=== PATIENT | male | born 1960 | race Caucasian/White ===

== ENCOUNTER → 2018-03-05 08:55 | Outpatient (CLI) | payer OTHER, BC, SELFPAY ==
[2018-03-05 10:28] LABS: Alanine Aminotransferase 34 U/L (12-78); Albumin Level 3.9 gm/dL (3.4-5.0); Albumin/Globulin Ratio 1.1 (1.1-1.8); Alkaline Phosphatase 79 U/L (46-116); Anion Gap 14.9 mEq/L (5-15); Aspartate Amino Transferase 46 U/L (15-37); Bilirubin,Total 0.4 mg/dL (0.2-1.0); Blood Urea Nitrogen 23 mg/dL (7-18); Calcium 9.5 mg/dL (8.5-10.1); Carbon Dioxide 27 mmol/L (21.0-32.0); Chloride 103 mmol/L (98-107); Cholesterol 120 mg/dL (140-200); Creatinine,Serum 1.09 mg/dL (0.70-1.30); Estimated Glomerular Filt Rate 70 ml/min (>60); GFR (African American) 84 ML/MIN (>60); Globulin 3.5 gm/dl (1.3-3.2); Glucose 103 mg/dL (74-106); HDL Cholesterol 61 mg/dL (27-67); LDL Cholesterol 49 mg/dL (0-130); Potassium 3.9 mmoL/L (3.5-5.1); Prostate Specific Ag Screen 1.4 ng/mL (0.0-4.0); Sodium 141 mmol/L (136-145); Total Protein,Serum 7.4 gm/dL (6.4-8.2); Triglycerides 50 mg/dL (30-200); VLDL Cholesterol 10 mg/dL (0-40)
== END ==
PROVIDERS: Visit Provider Family Medicine
DX: I10 Essential (primary) hypertension (principal); E78.5 Hyperlipidemia, unspecified
CPT/HCPCS: 36415; 80053; 80061; G0103

== ENCOUNTER → 2018-07-13 14:28 | Outpatient (CLI) | payer OTHER, BC, SELFPAY | PROVIDERS: Family Provider Family Medicine; Visit Provider Family Medicine | DX: M54.5 Low back pain (principal) ==

== ENCOUNTER → 2018-07-23 15:51 | Outpatient (CLI) | payer OTHER, BC, SELFPAY ==
--- NOTE | 2018-07-23 15:53 | MR_ITS ---
MR thoracic spine wo con HISTORY: ITS.REASON: ACUTE MIDLINE THORACIC BACK PAIN ORDERING PHYSICIAN: Isaac Hercules MD PATIENT AGE: 57 years Comparison: None TECHNIQUE: Standard multiplanar multiecho sequences are performed without contrast. 3-D MIP and myelographic images are also rendered and reviewed FINDINGS: There is normal alignment. There is mild multilevel degenerative disc disease with decrease in the disc space and disc desiccation from T4 to T12. There is some minimal endplate irregularity at T7-T12 with slight decrease in the vertebral body height at T6-T9 suggesting Scheuermann's disease. T5-T6: Minimal right paracentral disc protrusion without impingement. T6-T7: Small left paracentral disc protrusion abutting the anterior aspect of the cord. T7-T8: Small central disc extrusion/herniation which abuts the anterior aspect of the cord centrally and slightly towards the right. There is some mild compression upon the anterior right aspect of the cord with mild flattening of the cord at this region. There is minimal inferior extrusion of the disc. No fracture or dislocation evident. No bony destructive process or bone marrow edema. IMPRESSION: 1. Small central disc extrusion/herniation at T7-T8 very slightly eccentric towards the right causing mild flattening upon the anterior right aspect of the cord with minimal inferior extrusion of the disc. 2. Multilevel thoracic spondylosis with degenerative disc disease and possible Scheuermann's disease. 3. Minimal right paracentral disc protrusion at T5-6 and small left paracentral disc protrusion at T6-T7 IMPRESSION:
== END ==
PROVIDERS: Family Provider Family Medicine; PCP Family Medicine; Visit Provider Family Medicine
DX: M54.6 Pain in thoracic spine (principal)
CPT/HCPCS: 72146

== ENCOUNTER → 2019-07-26 11:12 | Outpatient (POV) | payer OTHER, BC, SELFPAY | PROVIDERS: Visit Provider Dermatology | DX: Z00.00 Encounter for general adult medical examination without abnormal findings (principal) ==

== ENCOUNTER → 2020-04-03 15:58 | Outpatient (POV) | payer OTHER, BC, SELFPAY | PROVIDERS: PCP Physician Assistant; Visit Provider Physician Assistant | DX: Z00.00 Encounter for general adult medical examination without abnormal findings (principal) ==

== ENCOUNTER → 2020-06-21 08:16 | Outpatient (CLI) | payer BC, SELFPAY ==
--- NOTE | 2020-06-21 08:20 | CT_ITS ---
PROCEDURE: CT LUNG SCREENING CLINICAL INDICATION: H/O NICOTINE DEPENDENCE Current smoker 94 pack year smoking history Emphysema No prior COMPARISON: No exams were available for comparison TECHNIQUE: The exam was performed on a GE Light Speed [address] scanner using 2.90 mGy CTDI. A low dose helical CT CHEST was performed on a multi-detector scanner. All CT scans at the facility use one or more dose reduction, viz: automated exposure control, ma/kV adjustment per patient size (including targeted exams where dose is matched to indication, i.e. head), or iterative reconstruction technique. The LDCT was performed in a facility that meets the criteria for the screening program. Data regarding this exam was submitted to ACR which is an approved registry. The order for this exam indicates that it came as a result of a lung cancer screening counseling shard decision-making visit that included all the elements required of such a visit including smoking cessation. The radiologist interpreting this exam meets the [facility] criteria for the LDCT lung cancer screening program. The exam is reported using the Lung-RADS classification scale and reported to the ACR registry. NOTE: This study was performed for the specific purposes of lung cancer screening and is not an alternative to diagnostic chest CT. RADIATION DOSE: CTDI vol(CT dose Index-volume) = 2.90mG DLP (Dose Length Product) = 117.50 mGcm FINDINGS: Paraseptal emphysema. COPD. 3 mm noncalcified nodule right major fissure image 49. Subpleural opacity in the right. 2 mm not nodule image 44 left upper lobe. 2 mm noncalcified nodule at the left upper lobe image 36 OTHER FINDINGS: No other pertinent findings evident. IMPRESSION: Lung-RADS Category 2 Benign Appearance or Behavior Follow-up: 12 month LDCT Dictated by: Kirill Jane MD 07/01/2020 09:28 Kirill Jane MD in [place] 07/01/2020 09:28
== END ==
PROVIDERS: PCP Family Medicine; Visit Provider Family Medicine
DX: Z87.891 Personal history of nicotine dependence (principal)

== ENCOUNTER → 2020-08-24 15:34 | Outpatient (CLI) | payer BC, SELFPAY ==
--- NOTE | 2020-08-24 | XR_ITS ---
PROCEDURE: XR SHOULDER RT MIN 2V CLINICAL INDICATION: Injury with pain COMPARISON: CR XR CLAVICLE RT from 08/24/2020 FINDINGS: There is a nondisplaced oblique fracture involving the distal clavicle. The fracture line is 2.7 cm medial to the AC joint. The AC joint shows hypertrophic changes but no displacement or dislocation. Osteoarthritic changes are also present at the glenohumeral joint. There is generalized vascular calcification. IMPRESSION: Nondisplaced oblique distal clavicular fracture with osteoarthritis Dictated by: Kirill Jane MD 08/24/2020 16:02 Kirill Jane MD in [place] 08/24/2020 16:02
== END ==
PROVIDERS: PCP Family Medicine; Visit Provider Family Medicine
DX: S49.91XA Unspecified injury of right shoulder and upper arm, initial encounter (principal)
CPT/HCPCS: 73000; 73030

== ENCOUNTER → 2020-09-07 10:09 | Outpatient (CLI) | payer BC, SELFPAY ==
--- NOTE | 2020-09-07 10:13 | XR_ITS ---
PROCEDURE: XR CLAVICLE RT CLINICAL INDICATION: RT CLAVICLE FX Follow-up fracture COMPARISON: CR XR CLAVICLE RT from 08/24/2020 FINDINGS: There is a healing right distal clavicular fracture oblique in nature. The fracture is nondisplaced. Osteoarthritic changes are present at the acromioclavicular joint and glenohumeral joint Generalized vascular calcifications are present. Other findings:None. IMPRESSION: Healing distal clavicular fracture with osteoarthritis Dictated by: Kirill Jane MD 09/07/2020 10:56 Kirill Jane MD in [place] 09/07/2020 10:56
== END ==
PROVIDERS: PCP Family Medicine; Visit Provider Family Medicine
DX: S42.034A Nondisplaced fracture of lateral end of right clavicle, initial encounter for closed fracture (principal)
CPT/HCPCS: 73000

== ENCOUNTER → 2020-09-25 14:59 | Outpatient (POV) | payer BC, SELFPAY | PROVIDERS: Visit Provider Dermatology | DX: Z00.00 Encounter for general adult medical examination without abnormal findings (principal) ==

== ENCOUNTER → 2022-07-09 13:11 | Outpatient (CLI) | payer BC, SELFPAY ==
--- NOTE | 2022-07-09 13:14 | CT_ITS ---
FINAL REPORT TECHNIQUE: Axial images were obtained from the lung apex to the mid abdomen by computed tomography. This study was performed with techniques to keep radiation doses as low as reasonably achievable (ALARA). Individualized dose reduction techniques using automated exposure control or adjustment of mA and/or kV according to the patient's size were employed. CLINICAL HISTORY: H/O NICOTINE DEPENDENCE, LOW DOSE LUNG SCREENING COMPARISON: 06/21/2020 FINDINGS: CHEST CT LOW DOSE CTDI vol (mGy): 2.90 DLP (mGy-cm): 115.94 There is no axillary adenopathy. There is no hilar or mediastinal adenopathy. The heart is normal in size. There is no pericardial or pleural effusion. There is a densely calcified granuloma in the inferior right upper lobe. There is localized soft tissue density in the medial right middle lobe measuring 1.5 x 0.8 cm. Finding is well seen on image 71 of series 3. There is linear scarring in the right lower lobe posteriorly. There is also mild airspace opacity in the right lower lobe, favor inflammatory. The gallbladder is mildly distended. IMPRESSION: New density in the medial right middle lobe which is indeterminate, favor postinflammatory. Right lower lobe airspace opacity. Lung RADS category 4BS. Recommend 1 month follow-up low-dose chest CT. Reviewed, Interpreted and Dictated by Leonard Palmer MD Transcribed by Katelyn Che Authenticated and [facility]
== END ==
PROVIDERS: PCP Family Medicine; Visit Provider Family Medicine
DX: Z87.891 Personal history of nicotine dependence (principal); Z12.2 Encounter for screening for malignant neoplasm of respiratory organs
CPT/HCPCS: 71271

== ENCOUNTER → 2022-08-08 12:52 | Outpatient (CLI) | payer BC, SELFPAY ==
--- NOTE | 2022-08-08 12:55 | CT_ITS ---
FINAL REPORT TECHNIQUE: Axial imaging of the chest was obtained without contrast. Reformatted images were also obtained and reviewed.This study was performed with techniques to keep radiation doses as low as reasonably achievable, (ALARA). Individualized dose reduction technique using automated exposure control or adjustment of mA and/or kV according to the patient's size were employed. CLINICAL HISTORY: ABNORMAL ABDOMINAL CT SCAN COMPARISON: 07/09/2022 FINDINGS: There are severe coronary artery calcifications. There is no axillary adenopathy. There is no hilar or mediastinal mass or adenopathy. Heart size is normal. There is no pericardial or pleural effusion. Limited images of the upper abdomen are unremarkable. There is mild emphysema and mild pulmonary scarring. There has been interval improvement in medial right middle lobe opacity. Slight worsening linear opacities are seen at the right lung base consistent with worsening atelectasis or scarring. There is no new mass or nodule. IMPRESSION: Severe coronary artery calcifications. Improved medial right middle lobe opacity. Slight worsening of linear opacities at the right lung base consistent with worsening atelectasis or scarring. Reviewed, Interpreted and Dictated by Sean Ruby III, MD Transcribed by Susi Dickens Authenticated and [facility]
== END ==
PROVIDERS: PCP Family Medicine; Visit Provider Family Medicine
DX: R93.5 Abnormal findings on diagnostic imaging of other abdominal regions, including retroperitoneum (principal)
CPT/HCPCS: 71250

== ENCOUNTER → 2023-01-06 09:38 | Outpatient (CLI) | payer BC, SELFPAY ==
[2023-01-06 10:09] LABS: Blood Urea Nitrogen 21 mg/dl (9-20); Estimated Glomerular Filt Rate 98 ml/min (>60); GFR (African American) 119 ML/MIN (>60)
== END ==
PROVIDERS: PCP Family Medicine; Visit Provider Family Medicine
DX: Z01.812 Encounter for preprocedural laboratory examination (principal)
CPT/HCPCS: 36415; 82565; 84520

== ENCOUNTER → 2023-01-07 10:33 | Outpatient (CLI) | payer BC, SELFPAY | PROVIDERS: PCP Family Medicine; Visit Provider Family Medicine | DX: M54.2 Cervicalgia (principal); G95.9 Disease of spinal cord, unspecified ==

== ENCOUNTER 2023-11-20 10:51 | Outpatient (CLI) | payer BC, SELFPAY ==
--- NOTE | 2023-11-20 10:56 | CT_ITS ---
FINAL REPORT TECHNIQUE: Axial images were obtained from the lung apex to the mid abdomen by computed tomography. This study was performed with techniques to keep radiation doses as low as reasonably achievable (ALARA). Individualized dose reduction techniques using automated exposure control or adjustment of mA and/or kV according to the patient's size were employed. CLINICAL HISTORY: H/O TOBACCO USE CURRENT SMOKER 1.5PPD X 40 YRS COMPARISON: 07/09/2022 FINDINGS: CHEST CT LOW DOSE CTDI vol (mGy): 2.90 DLP (mGy-cm): 112.55 There is no axillary adenopathy. There is no hilar or mediastinal adenopathy. The heart is normal in size. There is no pericardial or pleural effusion. There is patchy airspace disease within the right middle lobe and right lower lobe, new since prior suspicious for recurrent pneumonia. Aspiration may be considered as a potential cause. Areas of pneumonia seen on prior exam have largely resolved. Linear densities in the right lung base have resolved. The left lung is clear. Limited images of the upper abdomen reveal fatty infiltration of the liver. IMPRESSION: Patchy airspace disease right lung base suspicious for pneumonia, possibly related to aspiration. No evidence of neoplasm. Lung RADS category 2S. Recommend 12 month follow-up low-dose chest CT. Clinical management of pneumonia, short-term chest CT may be considered at the discretion of the treating physician. Reviewed, Interpreted and Dictated by Mar Alarcon MD Transcribed by Katelyn Che Authenticated and [facility]
== END 2023-11-20 23:59 ==
LOC: RAD 10:51
PROVIDERS: PCP Family Medicine; Visit Provider Family Medicine
DX: Z12.2 Encounter for screening for malignant neoplasm of respiratory organs (principal); F17.200 Nicotine dependence, unspecified, uncomplicated
CPT/HCPCS: 71271

== ENCOUNTER 2024-01-12 16:02 | Outpatient (CLI) | payer BC, SELFPAY | END 2024-01-12 23:59 | LOC: RAD 16:02 | PROVIDERS: PCP Family Medicine; Visit Provider Family Medicine | DX: M47.12 Other spondylosis with myelopathy, cervical region (principal) ==

== ENCOUNTER 2025-05-16 14:59 | Outpatient (CLI) | payer BC, MEDICARE, SELFPAY ==
--- OUTSIDE RECORDS SUMMARY | 2025-04-06 06:45 | XMS_ITS ---
Author Organization [facility] Address [address] [facility] [address] [place] [id number] Care Team Providers Care Predictive Maintenance Specialist Name Role Phone Sukhi Hercules Primary Care Provider Allergies No Known Allergies REASON FOR VISIT 3 month ckup, Needs colon cancer screening, low dose chest CT, Tdap, & shingles vaccine Encounters Encounter Location Date Provider Diagnosis [facility] [address] [facility] [address] [place] [id number] 04/06/2025 Sukhi Hercules Plan Of Treatment Next Appt Details Provider Name:Sukhi Ward, 08/08/2025 09:15:00 AM, [address] [facility], [address], [place], [id number], Progress Notes * RAMONA TABORDOB: 0 (64 yo M)Acc No.[id number]:04/06/2025 Progress Notes Patient: RAMONA ROONEY Provider: Sukhi Hercules M.D. :1960 A ge:64 Y S ex:Male Date:04/06/2025 Address:[id number] Subjective: * Chief Complaints: * 1 . 3 month ckup. 2. Needs colon cancer screening, low dose chest CT, Tdap, & shingles vaccine. * HPI: H PI: 64 year old male presents with c/o Patient is here today for?Pt is here today for a 3 month check up. Pt sts he is doing well and has no concerns at this time. * ROS: D ERMATOLOGY: no R mary carmen. n o H hilario. G ASTROENTEROLOGY: no N ausea. n o V omiting. n o D iarrhea.? U ROLOGY: no D ifficulty urinating. n o B lood in urine. * Medical History: A nxiety, Hypertension, HLP, Chronic back pain - failed back syndrome, COPD, Tobacco addiction, Hx of ETOH abuse , PUD by EGD - 11/2023. * Surgical History: L umbar discectomy/ Dr. Oshea , Posterior interbody fusion L4-5, L5-S1/ Dr. 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 * Hospitalization/Major Diagno stic Procedure: s ee above , [facility]-alcohol withdrawal 11/07 to 11/11/18. * Family History: F ather: alive, CAD- s/p CABG. M other: alive. C hildren: cerebral palsy. 1 brother(s) , 2 sister(s) - healthy. 1 son(s) , 1 daughter(s) . . * Social History: C URRENT TOBACCO USE S moking Status: Patient does smoke, packs per day: 2, number of cigarettes per day: 30, Since age of: 12, Smoking preference: cigarettes. C affeine: yes, frequency: 4 cups of coffee a day. Marital Status: . Occupation: quality assurance consultant. Past smoking status: yes, PPD:1 , years: since age of 15 yrs. ,determination:. Alcohol: No, Type: , Frequency: ,Years: , Determination: Quit whiskey 05/2013. * Allergies: N .K.D.A. Objective: * Vitals: Assessment: Plan: * Treatment: * Images: Billing Information: * Visit Code: * Procedure Codes: * Electronic signature of Sukhi Hercules MD on 05/16/2025 at 03:02 PM EDT Sign off status: Pending * Provider: Sukhi Hercules M.D. Date: 0 04/06/2025 Generated for Tatiana mccrary/More/Ketan on: 0 05/16/2025 03:02 PM EDT History and Physical Notes * HPI (History of Present Illness) Category Sub-Category Detail Notes Category Not es HPI Patient is here today for Pt is here today for a 3 month check up. Pt sts he is doing well and has no concerns at this time
--- OUTSIDE RECORDS SUMMARY | 2025-04-25 05:45 | XMS_ITS ---
Author Organization [facility] Address [address] [facility] [address] [facility] [address] [place] [id number] Care Team Providers Care Film Painter Name Role Phone Sukhi Hercules Primary Care Provider Allergies No Known Allergies REASON FOR VISIT check up, Needs labs, low dose chest CT, colon cancer screening, Tdap, & shingles vaccine Encounters Encounter Location Date Provider Diagnosis [facility] [address] [facility] [address] [place] [id number] 04/25/2025 Sukhi Hercules Plan Of Treatment Next Appt Details Provider Name:Sukhi Ward, 08/08/2025 09:15:00 AM, [address] [facility], [address], [place], [id number], Progress Notes * RAMONA TABORDOB: 0 (64 yo M)Acc No.[id number]:04/25/2025 Progress Notes Patient: RAMONA ROONEY Provider: Sukhi Hercules M.D. :1960 A ge:64 Y S ex:Male Date:04/25/2025 Address:[id number] Subjective: * Chief Complaints: * 1 . Check up. 2. Needs labs, low dose chest CT, colon cancer screening, Tdap, & shingles vaccine. * HPI: H PI: 64 year old male presents with c/o Patient is here today for?Pt is here today for a check up. Pt sts he is fasting, and has no complaints at this itme. 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 * Hospitalization/Major Diagno stic Procedure: s ee above , [facility]-alcohol withdrawal 11/07 to 11/11/18. * Family [...] a day. Marital Status: . Occupation: quality process auditor. Past smoking status: yes, PPD:1 , years: [...] * Provider: Sukhi Hercules M.D. Date: 0 04/25/2025 Generated for Tatiana mccrary/More/Ketan on: 05/16/2025 03:02 PM EDT History and Physical Notes * HPI (History of Present Illness) Category Sub-Category Detail Notes Category Not es HPI Patient is here today for Pt is here today for a check up. Pt sts he is fasting, and has no complaints at this itme
--- OUTSIDE RECORDS SUMMARY | 2025-05-04 06:00 | XMS_ITS ---
Author Organization [facility] Address [address] [facility] [address] [place] [phone] Care Team Providers Care Parliamentary Counsel Name Role Phone Sukhi Hercules Primary Care Provider [phone] Allergies No Known Allergies REASON FOR VISIT check up, Needs low dose chest CT, colon cancer screening, Tdap, & shingles vaccine Medications Medication SIG (Take, Route, Frequency, Duration) Notes Start Date End Date Status Ferrous Sulfate 325 (65 Fe) MG 1 tablet Orally once daily; Duration: 30 day(s) 12/21/2023 Active Tab-A-Aziza - TAKE ONE TABLET BY M OUTH EVERY DAY; Duration: 90 Active Potassium Chloride ER 10 MEQ 1 capsule with food Orally once daily; Duration: 30 day(s) 12/25/2024 Active Anoro Ellipta 62.5-25 MCG/ACT 1 puff Inhalation Once a day; Duration: 30 days Active Losartan Potassium 50 mg TAKE ONE TABLET BY MOUTH EVERY DAY; Duration: 90 Active Pantoprazole Sodium 40 MG 1 tablet Orall y Once a day Active Losartan Potassium 50 MG 1 tab(s) orally once a day Active Rosuvastatin Calcium 10 mg TAKE ONE TABL ET BY MOUTH EVERY DAY AT BEDTIME Active amLODIPine Besylate 5 mg TAKE ONE TABLET BY MOUTH EVERY DAY Active Aspirin 81 81MG DIRECTED QD Active Vitamin D3 50 MCG (2000 UT) 2 tab(s) ora lly once a day Active MS Contin 30 MG 2 tab(s) qam, 1 tab( s) qpm orally as directed Active Albuterol Sulfate HFA 108 (90 Base) MCG/ACT 2 puffs Inhalation four times a day as needed Active Anoro Ellipta 62.5-25 MCG/ACT 1 puff(s) inhaled once a day Active PARoxetine HCl 40 mg TAKE ONE TABLET BY MOUTH EVERY DAY Active Thiamine HCl 100 MG 1 tablet Orally Once a day Active Folic Acid 1 MG 1 tab(s) orally once a day Active HYDROcodone-Acetaminophen 5-325 MG 1 tab(s) orally 3 times a day Active Problems Problem Type SNOMED Code ICD Code Onset Dates Problem Status W/U Status Risk Notes Problem 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 Vital Signs Weight 177.8 lbs 05/04/2025 Blood pressure systolic 130 mm Hg 05/04/20 25 Blood pressure diastolic 86 mm Hg 025 Heart Rate 124 /min 05/04/2025 Height 71 in 05/04/2025 BMI 24.8 kg/m2 05/04/2025 Encounters Encounter Location Date Provider Diagnosis [facility] [address] [phone] 05/04/2025 Sukhi Hercules Chronic pain syndrom e G89.4 ; Failed back syndrome M96.1 ; HTN (hypertension) I10 ; COPD (chronic obstructive pulmonary disease) J44.9 ; Dyslipidemia E78.5 ; Anemia associated with acute blood loss D62 ; Depressive disorder F32.9 ; Tobacco dependence F17.200 ; Cervical myelopathy G95.9 ; ETOH abuse F10.10 ; BMI 24.0-24.9, adult Z68.24 ; Alcoholic polyneuropathy G62.1 ; Seasonal allergic rhinitis, unspecified allergic rhinitis trigger J30.2 ; Bilateral leg weakness M62.81 and Screening for prostate cancer Z12.5 Assessments Encounter Date Diagnosis (ICD Code) Assessment Notes Treatment Notes Treatment Clinical Notes Section Notes 05/04/2025 Chronic pain syndrome (ICD-10 - G89.4) 05/04/2025 Failed back syndrome (ICD-10 - M96.1) 05/04/2025 HTN (hypertension) (ICD-10 - I10) 05/04/2025 COPD (chronic obstructive pulmonary disease) (ICD-10 - J44.9) 05/04/2025 Dyslipidemia (ICD-10 - E78.5) 05/04/2025 Anemia associated with acute blood loss (ICD-10 - D62) 05/04/2025 Depressive disorder (ICD-10 - F32.9) 05/04/2025 Tobacco dependence (ICD-10 - F17.200) 05/04/2025 Cervical myelopathy (ICD-10 - G95.9) S/p recent cervical laminectomy 05/04/2025 ETOH abuse (ICD-10 - F10.10) 05/04/2025 BMI 24.0-24.9, adult (ICD-10 - Z68.24) 05/04/2025 Alcoholic polyneuropathy (ICD-10 - G62.1) 05/04/2025 Seasonal allergic rhinitis, unspecified allergic rhinitis trigger (ICD-10 - J30.2) 05/04/2025 Bilateral leg weakness (ICD-10 - M62.81) Symptoms are likely multifactorial. He is very sedentary and becomes dyspneic with slightest exertion. He is tachycardic today after simply walking in from the parking lot which point to deconditioning is a contributing factor to his leg weakness. There is also likely a neurologic component related to alcoholic neuropathy as well as his history of failed back syndrome and cervical myelopathy. He is instructed on leg strengthening exercises with leg raises, leg extensions, and squats. He is also advised to begin a slow walking program. May need to consider neurologic evaluation by way of EMG testing. 05/04/2025 Screening for prostate cancer (ICD-10 - Z12.5) Plan Of Treatment Medication Medication Name Sig Start Date Stop Date Notes Losartan Potassium 50 MG 1 tab(s) orally once a day Rosuvastatin Calcium 10 mg TAKE ONE TABL ET BY MOUTH EVERY DAY AT BEDTIME amLODIPine Besylate 5 mg TAKE ONE TABLET BY MOUTH EVERY DAY Vitamin D3 50 MCG (2000 UT) 2 tab(s) orally once a day MS Contin 30 MG 2 tab(s) qam, 1 tab( s) qpm orally as directed Albuterol Sulfate HFA 108 (9 0 Base) MCG/ACT 2 puffs Inhalation four times a day as needed Anoro Ellipta 62.5-25 MCG/ACT 1 puff(s) inhaled once a day PARoxetine HCl 40 mg TAKE ONE TABLET BY MOUTH EVERY DAY Thiamine HCl 100 MG 1 tablet Orally Once a day Folic Acid 1 MG 1 tab(s) orally once a day HYDROcodone-Acetaminophen 5-325 MG 1 tab(s) orally 3 times a day Treatment Notes Assessment Notes Bilateral leg weakness Symptoms are likely multifactorial. He is very sedentary and becomes dyspneic with slightest exertion. He is tachycardic today after simply walking in from the parking lot which point to deconditioning is a contributing factor to his leg weakness. There is also likely a neurologic component related to alcoholic neuropathy as well as his history of failed back syndrome and cervical myelopathy. He is instructed on leg strengthening exercises with leg raises, leg extensions, and squats. He is also advised to begin a slow walking program. May need to consider neurologic evaluation by way of EMG testing. Next Appt Details Follow Up: 3 Months, Reason: Provider Name:Sukhi Ward, 08/08/2025 09:15:00 AM, [address] [facility] [address], [place], [place], [phone], Progress Notes * RAMONA TABORDOB: 0 (64 yo M)Acc No.[id number]:05/04/2025 Progress Notes Patient: RAMONA ROONEY Provider: Sukhi Hercules M.D. :1960 A ge:64 Y S ex:Male Date:05/04/2025 Address:[address] [place] [address] [id number] Subjective: * Chief Complaints: * 1 . Check up. 2. Needs low dose chest CT, colon cancer screening, Tdap, & shingles vaccine. * HPI: H PI: 64 year old male presents with c/o Patient is here today for?Pt is here today for a check up. Pt sts he is doing well and has no concerns at this time . ? N eurology: His chief complaint today is leg weakness. He has actually had a couple falls recently. He denies leg numbness. He admits to being very sedentary at home and understands that exercise would likely help. It is significant that he has a history of cervical myelopathy and failed back syndrome as well as continued alcohol abuse. 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 * Hospitalization/Major Diagno stic Procedure: s ee above , [facility]-alcohol withdrawal 11/07 to 11/11/18. * Family [...] day. Marital Status: . Occupation: quality assurance assistant. Past smoking status: yes, PPD:1 , years: since age of 15 yrs. ,determination:. Alcohol: No, Type: , Frequency: ,Years: , Determination: Quit whiskey 05/2013. * Medications: T aking Albuterol Sulfate HFA 108 (90 Base) MCG/ACT Aerosol Solution 2 puffs Inhalation four times a day as needed , Taking PARoxetine HCl 40 mg Tablet TAKE ONE TABLET BY MOUTH EVERY DAY , Taking amLODIPine Besylate 5 mg Tablet TAKE ONE TABLET BY MOUTH EVERY DAY , Taking Rosuvastatin Calcium 10 mg Tablet TAKE ONE TABLET BY MOUTH EVERY DAY AT BEDTIME , Taking Aspirin 81 81MG DIRECTED QD , Taking Vitamin D3 50 MCG (2000 UT) Tablet 2 tab(s) orally once a day , Taking Pantoprazole Sodium 40 MG Tablet Delayed Release 1 tablet Orally Once a day , Taking Ferrous Sulfate 325 (65 Fe) MG Tablet 1 tablet Orally once daily , Taking Thiamine HCl 100 MG Tablet 1 tablet Orally Once a day , Taking Folic Acid 1 MG Tablet 1 tab(s) orally once a day , Taking Tab-A-Aziza - Tablet TAKE ONE TABLET BY MOUTH EVERY DAY , Taking Potassium Chloride ER 10 MEQ Capsule Extended Release 1 capsule with food Orally once daily , Taking Anoro Ellipta 62.5-25 MCG/ACT Aerosol Powder Breath Activated 1 puff Inhalation Once a day , Taking Losartan Potassium 50 mg Tablet TAKE ONE TABLET BY MOUTH EVERY DAY , Taking HYDROcodone-Acetaminophen 5-325 MG Tablet 1 tab(s) orally 3 times a day , Taking MS Contin 30 MG Tablet Extended Release 2 tab(s) qam, 1 tab(s) qpm orally as directed , Medication List reviewed and reconciled with the patient * Allergies: N .K.D.A. Objective: * Vitals: W t: 177.8, Temp: 97.9, BP: 130/86, HR: 124, O2 Sat: 94% on RA, Nurse: cash, Ht: 71, BMI:24.8. * Examination: G eneral Examination: General Appearance: N AD. H eart: T achycardic but regular. L ungs: B reath sounds are generally diminished. No rales or wheezes. E xtremities: n o leg edema. Strength in the lower extremities is 4+/5. His gait is somewhat ataxic.. Assessment: * Assessment: 1. C hronic pain syndrome - G89.4 (Primary) 2 . F tawanna back syndrome - M96.1 3 . H TN (hypertension) - I10 4 . C OPD (chronic obstructive pulmonary disease) - J44.9 5 . D yslipidemia - E78.5 6 . Anemia associated with acute blood loss - D62 7 . D epressive disorder - F32.9? 8. T obacco dependence - F17.200 9 . C ervical myelopathy - G95.9 N otes :S/p recent cervical laminectomy 1 0. E BECCA abuse - F10.10 1 1. B WI 24.0-24.9, adult - Z68.24 1 2. A lcoholic polyneuropathy - G62.1 1 3. S easonal allergic rhinitis, unspecified allergic rhinitis trigger - J30.2 1 4. B ilateral leg weakness - M62.81 1 5. S creening for prostate cancer - Z12.5 ? Plan: * Treatment: 2. F tawanna back syndrome Continue MS Contin Tablet Extended Release, 30 MG, 2 tab(s) qam, 1 tab(s) qpm, orally, as directed, 90, Refills 0. 3. H TN (hypertension) Continue amLODIPine Besylate Tablet, 5 mg, TAKE ONE TABLET BY MOUTH EVERY DAY; C ontinue Losartan Potassium Tablet, 50 MG, 1 tab(s), orally, once a day. 4. C OPD (chronic obstructive pulmonary disease) Continue Albuterol Sulfate HFA Aerosol Solution, 108 (90 Base) MCG/ACT, 2 puffs, Inhalation, four times a day as needed; C ontinue Anoro Ellipta Aerosol Powder Breath Activated, 62.5-25 MCG/ACT, 1 puff(s), inhaled, once a day. 5. D yslipidemia Continue Rosuvastatin Calcium Tablet, 10 mg, TAKE ONE TABLET BY MOUTH EVERY DAY AT BEDTIME. ? 6. D epressive disorder Continue PARoxetine HCl Tablet, 40 mg, TAKE ONE TABLET BY MOUTH EVERY DAY. 7. A lcoholic polyneuropathy Continue Thiamine HCl Tablet, 100 MG, 1 tablet, Orally, Once a day; C ontinue Folic Acid Tablet, 1 MG, 1 tab(s), orally, once a day; C ontinue Vitamin D3 Tablet, 50 MCG (2000 UT), 2 tab(s), orally, once a day. 8. B ilateral leg weakness Notes: Symptoms are likely multifactorial. He is very sedentary and becomes dyspneic with slightest exertion. He is tachycardic today after simply walking in from the parking lot which point to deconditioning is a contributing factor to his leg weakness. There is also likely a neurologic component related to alcoholic neuropathy as well as his history of failed back syndrome and cervical myelopathy. He is instructed on leg strengthening exercises with leg raises, leg extensions, and squats. He is also advised to begin a slow walking program. May need to consider neurologic evaluation by way of EMG testing. * Procedure Codes: G 8420 BMI<30 AND >=22 CALC & DOCU, G8950 PREHTN/HTN BP DOC INDCD F/U DOC, G8752 MOST RECENT SYSTOLIC BP < 140MM HG, G8754 MOST RECENT DIASTOLIC BP < 90MM HG, 3075F SYST BP GE 130 - 139MM HG, 3079F DIAST BP 80-89 MM HG * Follow Up: 3 Months * Images: Billing Information: * Visit Code: 08711 Office Visit, Est Pt., Level 3. * Procedure Codes: G8420 BMI<30 AND >=22 CALC & DOCU. G8950 PREHTN/HTN BP DOC INDCD F/U DOC. G8752 MOST RECENT SYSTOLIC BP < 140MM HG. G8754 MOST RECENT DIASTOLIC BP < 90MM HG. 3075F SYST BP GE 130 - 139MM HG. 3079F DIAST BP 80-89 MM HG. * Electronic signature of Sukhi Hercules MD on 05/16/2025 at 03:01 PM EDT Sign off status: Pending * Provider: Sukhi Hercules M.D. Date: 05/04/2025 Generated for Tatiana mccrary/More/Andressmitting on: 05/16/2025 03:01 PM EDT History and Physical Notes * HPI (History of Present Illness) Category Sub-Category Detail Notes Category Not es Neurology His chief complaint today is leg weakness. He has actually had a couple falls recently. He denies leg numbness. He admits to being very sedentary at home and understands that exercise would likely help. It is significant that he has a history of cervical myelopathy and failed back syndrome as well as continued alcohol abuse HPI Patient is here toda y for Pt is here today for a check up. Pt sts he is doing well and has no concerns at this time Examination Category Sub-Category Detail Notes Category Not es General Examination Heart: Tachycardic but regul ar Lungs: Breath sounds are ge nerally diminished. No rales or wheezes Extremities: no leg edema. Streng th in the lower extremities is 4+/5. His gait is somewhat ataxic. General Appearance: NAD
--- OUTSIDE RECORDS SUMMARY | 2025-05-16 15:01 | XMS_ITS ---
Author Organization Unknown [facility] Start Date Provider Encounter for Check-up [phone] [facility]
--- OUTSIDE RECORDS SUMMARY | 2025-05-16 15:02 | XMS_ITS | Patient Health Record ---
Author Organization [facility] Address [address] [place] [id number] Care Team Providers Care Television And Radio Repairer Name Role Phone Sukhi Hercules Primary Care Provider Fany Barry Unavailable [phone] Allergies No Known Allergies Results Component Value Reference Range Notes VANDANA Reviewed date:07/06/2024 11:23:15 PM Interpretation: Performing Lab: Notes/Report: CBC Venipuncture (in house) Reviewed date:06/28/2024 08:16:36 AM Interpretation: Performing Lab: Notes/Report: wbc 6.8 3.5 - 10 lymph 23.4 15 - 50 mid 5.9 2 - 15 gran 70.7 35 - 80 rbc 4.52 3.5 - 5.5 hgb 14.8 11.5 - 16.5 hct 47.1 35 - 55 mcv 104.1 75 - 100 mch 32.7 25 - 35 mchc 31.4 31 - 38 platlet 113 100 - 400 P-Comprehensive Metabolic Pa terri (CMP) Reviewed date:06/28/2024 08:16:36 AM Interpretation: Performing Lab: Notes/Report: Test performed by [email or web address], [facility] [address] [place] [address] , [address], [place] [address] Abdiel Richard MD, [employer] CLIA: [id number] Sodium 147 135-145 mmol/L Potassium 4.0 3.5-5.3 mmol/L Chloride 106 97-108 mmol/L CO2 26 22-32 mmol/L Glucose 94 65-99 mg/dL BUN 17 8-23 mg/dL Creatinine 0.64 0.70-1.30 mg/dL Calcium 9.3 8.6-10.4 mg/dL eGFR by Creatinine 106 >59 mL/min/1.73m2 Protein 7.5 6.0-8.3 g/dL Albumin 4.4 3.5-5.3 g/dL Alkaline Phosphatase 87 40-129 IU/L ALT (SGPT) 38 <5-55 IU/L AST (SGOT) 80 <5-46 IU/L Bilirubin, Total 0.5 <0.2-1.2 mg/dL A/G Ratio 1.4 1.1-2.5 P-Iron Reviewed date:06/28/2024 08:16:36 AM Interpretation: Performing Lab: Notes/Report: Test performed by [facility] [address] [place] [address] , [address], [place] [address] Abdiel Richard MD, [employer] CLIA: [id number] Iron 35 59-158 ug/dL P-Lipid Panel Reviewed date:06/28/2024 08:16:36 AM Interpretation: Performing Lab: Notes/Report: Test performed by [facility] [address] [place] [address] , [address], [place] [address] Abdiel Richard MD, [employer] CLIA: [id number] Cholesterol 159 <200 mg/dL Triglycerides 95 <150 mg/dL HDL Cholesterol 82 >39 mg/dL Cholesterol / HDL Ratio 1.94 0.00-4.99 Ratio Non-HDL Cholesterol 77 <130 mg/dL LDL Cholesterol (Calculation) 58 <130 mg/dL LDL Cholesterol Levels* Less than 100 mg/dL Optimal 100 to 129 mg/dL Near Optimal/ Above Optimal 130 to 159 mg/dL Borderline High 160 to 189 mg/dL High 190 mg/dL and above Very High * Categories as recommended by the 2004 ATPIII guidelines LDL/HDL Ratio 0.7 <3.3 Ratio LDL Cholesterol Patient History Test Date: 06/23/2024 LDL Results: 58 Units: mg/dL % Change: - P-Comprehensive Metabolic Pa terri (CMP) Reviewed date:12/25/2024 10:03:53 PM Interpretation:K+ 3.2, gluc 105, Cr 0.63, ast 89 Performing Lab: Notes/Report: Test performed by [facility] , [address], [place] [address] Abdiel Richard MD, Binding [employer] CLIA: [id number] Sodium 142 135-145 mmol/L Potassium 3.2 3.5-5.3 mmol/L Chloride 99 97-108 mmol/L CO2 23 22-32 mmol/L Glucose 105 65-99 mg/dL BUN 18 8-23 mg/dL Creatinine 0.63 0.70-1.30 mg/dL Calcium 9.4 8.6-10.4 mg/dL eGFR by Creatinine 106 >59 mL/min/1.73m2 Protein 7.1 6.0-8.3 g/dL Albumin 4.3 3.5-5.3 g/dL Alkaline Phosphatase 93 40-129 IU/L ALT (SGPT) 38 <5-55 IU/L AST (SGOT) 89 <5-46 IU/L Bilirubin, Total 0.6 <0.2-1.2 mg/dL A/G Ratio 1.5 1.1-2.5 P-Lipid Panel Reviewed date:12/25/2024 10:03:53 PM Interpretation:Normal Performing Lab: Notes/Report: Test performed by [facility] , [address], [place] [address] Abdiel Richard MD, [employer] CLIA: [id number] Cholesterol 151 <200 mg/dL Triglycerides 82 <150 mg/dL HDL Cholesterol 86 >39 mg/dL Cholesterol / HDL Ratio 1.76 0.00-4.99 Ratio Non-HDL Cholesterol 65 <130 mg/dL LDL Cholesterol (Calculation) 49 <130 mg/dL LDL Cholesterol Levels* Less than 100 mg/dL Optimal 100 to 129 mg/dL Near Optimal/ Above Optimal 130 to 159 mg/dL Borderline High 160 to 189 mg/dL High 190 mg/dL and above Very High * Categories as recommended by the 2004 ATPIII guidelines LDL/HDL Ratio 0.6 <3.3 Ratio LDL Cholesterol Patient History Test Date: 06/23/2024 LDL Results: 58 Units: mg/dL % Change: - Test Date: 12/20/2024 LDL Results: 49 Units: mg/dL % Change: -15% P-PSA Reviewed date:12/25/2024 10:03:53 PM Interpretation:Normal Performing Lab: Notes/Report: Test performed by [email or web address], [address] , [address], [place] [address] Abdiel Richard MD, Binding [employer] CLIA: [id number] PSA 1.50 <4.00 ng/mL Please note this is an ultrasensitive PSA assay with a lower limit of detection of 0.014 ng/mL. This test is performed by the [employer] ECLIA methodology. Values obtained with different assay methods or kits cannot be directly compared. Medications Medication SIG (Take, Route, Frequency, Duration) Notes Start Date End Date Status Losartan Potassium 50 mg TAKE ONE TABLET BY MOUTH EVERY DAY; Duration: 90 Active Albuterol Sulfate HFA 108 (90 Base) MCG/ACT 2 puffs Inhalation four times a day as needed Active Anoro Ellipta 62.5-25 MCG/ACT 1 puff(s) inhaled once a day Active PARoxetine HCl 40 mg TAKE ONE TABLET BY MOUTH EVERY DAY Active amLODIPine Besylate 5 mg TAKE ONE TABLET BY MOUTH EVERY DAY Active Pantoprazole Sodium 40 MG 1 tablet Orall y Once a day Active Losartan Potassium 50 MG 1 tab(s) orally once a day Active Ferrous Sulfate 325 (65 Fe) MG 1 tablet Orally once daily; Duration: 30 day(s) 12/21/2023 Active Rosuvastatin Calcium 10 mg TAKE ONE TABL ET BY MOUTH EVERY DAY AT BEDTIME Active Thiamine HCl 100 MG 1 tablet Orally Once a day Active HYDROcodone-Acetaminophen 5-325 MG 1 tab(s) orally 3 times a day; Duration: 30 days 05/15/2025 Active Folic Acid 1 MG 1 tab(s) orally once a day Active MS Contin 30 MG 2 tab(s) qam, 1 tab( s) qpm orally as directed; Duration: 30 days 05/15/2025 Active Tab-A-Aziza - TAKE ONE TABLET BY M OUTH EVERY DAY; Duration: 90 Active Potassium Chloride ER 10 MEQ 1 capsule with food Orally once daily; Duration: 30 day(s) 12/25/2024 Active Vitamin D3 50 MCG (2000 UT) 2 tab(s) ora lly once a day Active Anoro Ellipta 62.5-25 MCG/ACT 1 puff Inhalation Once a day; Duration: 30 days Active Aspirin 81 81MG DIRECTED QD Active Immunizations Vaccine Route Administration Date Status Comme nts DT, 7 YEARS OR OLDER Unknown 12/22/1996 Administered COVID 19 Pfizer Unknown 07/08/2021 Administered Problems Problem Type SNOMED Code ICD Code Onset Dates Problem Status W/U Status Risk Notes Problem Hypertension (21971825) HTN (hypertension) (I10) Active confirmed Problem Vitamin D deficiency (28887898) Vitamin D deficiency (E55.9) Active confirmed Problem COPD - Chronic obstructive pulmonary disease (88279061) COPD (chronic obstructive pulmonary disease) (J44.9) Active confirmed Problem Radiculopathy due to lumbar intervertebral disc disorder (794840811537289) Lumbar disc disease with radiculopathy (M51.16) Active confirmed Problem Basal cell carcinoma (6746095) Basal cell carcinoma (C44.91) Active confirmed right ear Problem Hypomagnesemia (547311632) Hypomagnesemia (E83.42) Active confirmed Problem 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 Problem Chronic pain syndrome (679191157) Chronic pain syndrome (G89.4) Active confirmed Problem Nicotine dependence (73225651) Personal history of nicotine dependence (Z87.891) Active confirmed Problem Tobacco dependence (62969971) Tobacco dependence (F17.200) Active confirmed Problem Depressive disorder (28132302) Depressive disorder (F32.9) Active confirmed Problem Failed back syndrome (08843511) Failed back syndrome (M96.1) Active confirmed Problem Cervical disc disease (981188209) Cervical disc disease (M50.90) Active confirmed Problem Primary osteoarthritis (689173198) Primary osteoarthritis involving multiple joints (M15.0) Active confirmed Problem Chronic peptic ulcer with hemorrhage but without obstruction (59292504) Peptic ulcer disease with hemorrhage (K27.4) Active confirmed Problem Ethanol abuse (61561136) ETOH abuse (F10.10) Active confirmed Problem Hypophosphatemia (5261071) Hypophosphatemia (E83.39) Active confirmed Problem Dyslipidemia (704079990) Dyslipidemia (E78.5) Active confirmed Problem Seasonal allergic rhinitis (432258521) Seasonal allergic rhinitis, unspecified allergic rhinitis trigger (J30.2) Active confirmed Problem Cervical myelopathy (053443711) Cervical myelopathy (G95.9) Active confirmed S/p recent cervical laminectomy Problem Cervical myelopathy with cervical radiculopathy (M47.12) Active confirmed Vital Signs Heart Rate 124 /min 05/04/2025 Blood pressure diastolic 86 mm Hg 05/04/2025 Height 71 in 05/04/2025 Blood pressure systolic 130 mm Hg 05/04/2025 Weight 177.8 lbs 05/04/2025 BMI 24.8 kg/m2 05/04/2025 Encounters Encounter Location Date [facility] [address] [place] [address] [place] [id number] 06/23/2024 R German Delisa Chronic pain syndrom e G89.4 ; Failed back syndrome M96.1 ; HTN (hypertension) I10 ; COPD (chronic obstructive pulmonary disease) J44.9 ; Dyslipidemia E78.5 and Anemia associated with acute blood loss D62 [facility] [address] [place] [address] [place] [id number] 09/22/2024 R German Delisa Chronic pain syndrom e G89.4 ; Failed back syndrome M96.1 ; HTN (hypertension) I10 ; COPD (chronic obstructive pulmonary disease) J44.9 ; Dyslipidemia E78.5 ; Anemia associated with acute blood loss D62 and Cerumen impaction H61.20 [facility] [address] [place] [address] [place] [id number] 12/20/2024 R German Delisa Chronic pain syndrom e G89.4 ; Failed back syndrome M96.1 ; HTN (hypertension) I10 ; COPD (chronic obstructive pulmonary disease) J44.9 ; Dyslipidemia E78.5 ; Anemia associated with acute blood loss D62 ; Screening for prostate cancer Z12.5 ; Seasonal allergic rhinitis, unspecified allergic rhinitis trigger J30.2 ; Depressive disorder F32.9 and Tobacco dependence F17.200 [facility] [address] [place] [address] [place] [id number] 05/04/2025 R German Delisa Chronic pain syndrom e G89.4 ; Failed [...] M62.81 and Screening for prostate cancer Z12.5 [facility] [address] [place], [place] [id number] 05/16/2025 R German Delisa [facility] [address] [facility] [address] [place], [place] [id number] 06/23/2024 R German Delisa [facility] [address] [facility] [address] [place] [id number] 06/28/2024 R German Delisa [facility] [address] [facility] [address] [place], [place] [id number] 07/05/2024 R German Delisa [facility] [address] [facility] [address] [place], [place] [id number] 07/25/2024 [place] Chronic pain syndrom e G89.4 and Failed back syndrome M96.1 [facility] [address] [facility] [address] [place], [place] [id number] 08/30/2024 R German Delisa Chronic pain syndrom e G89.4 and Failed back syndrome M96.1 [facility] [address] [facility] [address] [place], [place] [id number] 08/31/2024 R German Delisa [facility] [address] [facility] [address] [place], [place] [id number] 10/03/2024 R German Delisa Chronic pain syndrom e G89.4 and Failed back syndrome M96.1 [facility] [address] [place], [place] [id number] 11/04/2024 R German Delisa Chronic pain syndrom e G89.4 and Failed back syndrome M96.1 [facility] [address] [facility] [address] [place] [id number] 12/06/2024 R German Delisa Chronic pain syndrom e G89.4 and Failed back syndrome M96.1 [facility] [address] [place], [place] [id number] 12/25/2024 R German Delisa [facility] [address] [place], [place] [id number] 01/02/2025 R German Delisa Chronic pain syndrom e G89.4 and Failed back syndrome M96.1 [facility] [address] [place] [id number] 01/05/2025 R German Delisa [facility] [address] [place] [id number] 02/06/2025 R German Delisa Chronic pain syndrom e G89.4 and Failed back syndrome M96.1 [facility] [address] [place], [place] [id number] 03/08/2025 R German Delisa Chronic pain syndrom e G89.4 and Failed back syndrome M96.1 [facility] [address] [place], [place] [id number] 04/10/2025 R German Delisa Chronic pain syndrom e G89.4 [facility] [address] [place], [place] [id number] 04/12/2025 R German Delisa Failed back syndrome M96.1 [facility] [address] [place], [place] [id number] 05/10/2025 R German Delisa [facility] [address] [place], [place] [id number] 05/15/2025 Barry [place] Chronic pain syndrom e G89.4 and Failed back syndrome M96.1 Assessments Encounter Date Diagnosis (ICD Code) Assessment Notes Treatment Notes Treatment Clinical Notes Section Notes 06/23/2024 Chronic pain syndrome (ICD-10 - G89.4) 06/23/2024 Failed back syndrome (ICD-10 - M96.1) 07/25/2024 Chronic pain syndrome (ICD-10 - G89.4) 09/22/2024 Chronic pain syndrome (ICD-10 - G89.4) 09/22/2024 Failed back syndrome (ICD-10 - M96.1) 10/03/2024 Chronic pain syndrome (ICD-10 - G89.4) 11/04/2024 Chronic pain syndrome (ICD-10 - G89.4) 12/20/2024 Chronic pain syndrome (ICD-10 - G89.4) 12/20/2024 Failed back syndrome (ICD-10 - M96.1) 01/02/2025 Chronic pain syndrome (ICD-10 - G89.4) 02/06/2025 Chronic pain syndrome (ICD-10 - G89.4) 03/08/2025 Chronic pain syndrome (ICD-10 - G89.4) 04/10/2025 Chronic pain syndrome (ICD-10 - G89.4) 04/12/2025 Failed back syndrome (ICD-10 - M96.1) 05/04/2025 Chronic pain syndrome (ICD-10 - G89.4) 05/04/2025 Failed back syndrome (ICD-10 - M96.1) 05/15/2025 Chronic pain syndrome (ICD-10 - G89.4) 12/06/2024 Chronic pain syndrome (ICD-10 - G89.4) 08/30/2024 Chronic pain syndrome (ICD-10 - G89.4) 08/30/2024 Failed back syndrome (ICD-10 - M96.1) 12/06/2024 Failed back syndrome (ICD-10 - M96.1) 05/15/2025 Failed back syndrome (ICD-10 - M96.1) 05/04/2025 HTN (hypertension) (ICD-10 - I10) 03/08/2025 Failed back syndrome (ICD-10 - M96.1) 02/06/2025 Failed back syndrome (ICD-10 - M96.1) 01/02/2025 Failed back syndrome (ICD-10 - M96.1) 11/04/2024 Failed back syndrome (ICD-10 - M96.1) 12/20/2024 HTN (hypertension) (ICD-10 - I10) 10/03/2024 Failed back syndrome (ICD-10 - M96.1) 07/25/2024 Failed back syndrome (ICD-10 - M96.1) 09/22/2024 HTN (hypertension) (ICD-10 - I10) 06/23/2024 HTN (hypertension) (ICD-10 - I10) 06/23/2024 COPD (chronic obstructive pulmonary disease) (ICD-10 - J44.9) 09/22/2024 COPD (chronic obstructive pulmonary disease) (ICD-10 - J44.9) 12/20/2024 COPD (chronic obstructive pulmonary disease) (ICD-10 - J44.9) 05/04/2025 COPD (chronic obstructive pulmonary disease) (ICD-10 - J44.9) 05/04/2025 Dyslipidemia (ICD-10 - E78.5) 09/22/2024 Dyslipidemia (ICD-10 - E78.5) 12/20/2024 Dyslipidemia (ICD-10 - E78.5) 06/23/2024 Dyslipidemia (ICD-10 - E78.5) 09/22/2024 Anemia associated with acute blood loss (ICD-10 - D62) 06/23/2024 Anemia associated with acute blood loss (ICD-10 - D62) 12/20/2024 Anemia associated with acute blood loss (ICD-10 - D62) 05/04/2025 Anemia associated with acute blood loss (ICD-10 - D62) 05/04/2025 Depressive disorder (ICD-10 - F32.9) 12/20/2024 Screening for prostate cancer (ICD-10 - Z12.5) 09/22/2024 Cerumen impaction (ICD-10 - H61.20) Advised using Debrox at home and if unsuccessful with wax removal, he will follow-up in a week for repeat ear irrigation. 12/20/2024 Seasonal allergic rhinitis, unspecified allergic rhinitis trigger (ICD-10 - J30.2) 05/04/2025 Tobacco dependence (ICD-10 - F17.200) 05/04/2025 Cervical myelopathy (ICD-10 - G95.9) S/p recent cervical laminectomy 12/20/2024 Depressive disorder (ICD-10 - F32.9) 12/20/2024 Tobacco dependence (ICD-10 - F17.200) 05/04/2025 ETOH abuse (ICD-10 - F10.10) 05/04/2025 [...] cancer (ICD-10 - Z12.5) Plan Of Treatment Pending Test Test Name Order Date MRI : Spine, Cervical, without contrast 12/21/2023 MRI : Spine, Cervical with and without c ontrast 12/30/2022 CT Scan : Chest, low dose 05/10/2025 Next Appt Details Provider Name:Sukhi Ward, 08/08/2025 09:15:00 AM, [address], [place], [place], [id number], Insurance Providers Payer Name Payer Address Payer Phone Subscriber Number Group Number Insured Name Patient Relationship to Insured Coverage Start Date Coverage End Date [employer] [address] [place] [address] [id number] RAMONA TABOR Self - patient is the insured MEDICARE PART B [address] [address] [place] [address] [id number] RAMONA TABOR Self - patient is the insured Medications Administered Medication Instructions Date of Administration Dosage Notes Dexamethasone 12/15/2005 1 mL Dexamethasone 02/07/2008 1 mL Dexamethasone 10/29/2017 1 mL Medical (General) History Medical History History ICD Code anxiety hypertension HLP chronic back pain - failed back syndrome COPD Tobacco addiction Hx of ETOH abuse PUD by EGD - 11/2023 Surgical History Surgery Date(Month/Year) Lumbar discectomy/ Dr. Oshea Posterior interbody fusion L4-5, L5-S1/ Dr. Aragon 2004 neck surgery x 2 cancer of the nose 2009 C3-5 cervical laminectomy-Dr Aragon 12.14. 18 basal cell removed from right ear-[facility] 08/11/19 Hospitalization History Reason Date(Month/Year) see above [facility]-alcohol withdrawal 11/07 t o 11/11/18
--- OUTSIDE RECORDS SUMMARY | 2025-05-16 15:02 | XMS_ITS | Clinical Summary ---
Author Organization [facility] Address [address] [place] [address] Care Team Providers Care Social Insurance Specialist Name Role Phone Isaac Hercules MD Primary Care Provider Allergies No known active allergies Medications aspirin 81 MG EC tablet Take 1 tablet by mouth Every Night. OTC Active amLODIPine (NORVASC) 5 MG tablet Take 1 tablet by mouth Daily. Active HYDROcodone-mark taminophen (NORCO) 5-325 MG per tablet Take 1 tablet by mouth 3 (Three) Times a Day. Active levoFLOXacin (LEVAQUIN) 750 MG tablet Take 1 tablet by mouth Daily. For 7 days, started on 11-27-23 Active losartan (COZAAR) 50 MG tablet Take 1 tablet by mouth Daily. Active Umeclidinium-Vi lanterol (Anoro Ellipta) 62.5-25 MCG/ACT aerosol powder inhaler Inhale 1 puff Daily. Active multivitamin with minerals tablet tablet Take 1 tablet by mouth Daily. Active PARoxetine (Paxil) 40 MG tablet Take 1 tablet by mouth Every Morning. 12/03/2023 Active Active Problems Problem Noted Date Diagnosed Date Alcohol withdrawal 12/02/2023 GI bleed 12/01/2023 GIB (gastrointestinal bleeding) 12/01/2023 Severe malnutrition 11/09/2018 Alcohol withdrawal syndrome 11/07/2018 Chronic alcohol abuse (1+ pint per day) 11/07/19 Chronic back pain (Chronic narcotics) 11/07/2018 GIRISH (acute kidney injury) 11/07/2018 Dehydration 11/07/2018 S/P laminectomy 10/01/2018 Overview (10/01/2018): Cervical laminectomy C3, C4-5; Dr. Aragon. Surgery date 10/01/18. Alcoholism /alcohol abuse 10/01/2018 Tobacco abuse 10/01/2018 Essential hypertension 09/29/2018 Dyslipidemia 09/29/2018 Abnormal EKG 09/29/2018 Cervical stenosis of spinal canal C3-4, C4-5 03/2018 Cervical spondylosis with myelopathy 08/19/2018 Herniation of intervertebral disc of thoracic re gion T10-11 08/19/2018 Immunizations Immunization Administration Dates Next Due Td (TDVAX) 12/22/1996 Social History Tobacco Use Types Packs/Day Years Used Date Smoking Tobacco: Every Day Cigarettes 2 44 Smokeless Tobacco: Former Snuff Quit: 09/29/2013 Tobacco Cessation:Ready to Q uit: Not Asked; Counseling Given: Not Answered Alcohol Use Standard Drinks/Week Comments Yes 56 (1 standard drink = 0.6 oz pure alcohol) drinks one pint daily- Jossue AUDIT-C Answer Date Recorded Q1: How often do you have a drink containing alcohol? 4 or more times a week 12/01/2023 Q2: How many drinks containi ng alcohol do you have on a typical day when you are drinking? 7 to 9 Q3: How often do you have si x or more drinks on one occasion? Daily or almost daily 12/01/2023 Abuse Screen Answer Date Recorded Feels Unsafe at Home or Work/School no 12/01/2023 Feels Threatened by Someone no 11/19 Does Anyone Try to Keep You From Having Contact with Others or Doing Things Outside Your Home? no 12/01/2023 Physical Signs of Abuse Present no 12/01/2023 Housing Stability Answer Date Recorded Current Living Arrangements home 11/19 Potentially Unsafe Housing Conditions Not on bronson e 12/01/2023 Family and Community Support Answer Paul e Recorded Help with Day-to-Day Activities Not on file 07/27/2023 Lonely or Isolated Not on file 07/27/2023 Employment Answer Date Recorded Do you want help finding or keeping work or a marty b? Not on file 07/27/2023 Disabilities Answer Date Recorded Difficulty Concentrating, Remembering or Making Decisions no 12/01/2023 Difficulty Managing Errands Independently no 12/01/2023 Education Answer Date Recorded Help with school or training? Not on file Preferred Language Not on file 07/27/2023 Sex and Gender Information Value Date Recorded Sex Assigned at Not on file Legal Sex Male 12:22 PM EDT Gender Identity Not on file Sexual Orientation Not on file Last Filed Vital Signs Vital Sign Reading Time Taken Comments Blood Pressure 140/90 12/03/2023 9:20 AM EST Pulse 96 12/03/2023 9:20 AM EST Temperature 36.1 C (97 F) 12/03/2023 9:20 AM EST Respiratory Rate 14 12/03/2023 9:20 AM EST Oxygen Saturation 95% 12/03/2023 9:20 AM EST Inhaled Oxygen Concentration - - Weight 79.4 kg (175 lb) 12/01/2023 8:31 AM EST Height 180.3 cm (5' 11 ) 12/01/2023 8:31 AM EST Body Mass Index 24.41 12/01/2023 8:31 AM EST Plan of Treatment Health Maintenance Due Date Last Done Comments COLOGUARD 2005 COLON CANCER SCREENING 5 YEA R SIGMOIDOSCOPY [address] COLONOGRAPHY 2005 FIT Testing (1 year) 2005 TDAP/TD VACCINES (2 - Tdap) 12/22/2006 12/22/1996 Pneumococcal Vaccine 50+ (1 of 1 - PCV) 2010 ZOSTER VACCINE (1 of 2) 2010 ANNUAL PHYSICAL 08/19/2018 HEPATITIS C SCREENING 08/19/2018 COVID-19 Vaccine ( - season) 2024 COLORECTAL CANCER SCREENING 12/01/2024 FECAL OCCULT BLOOD TEST 12/01/2024 12/01/2023, 12/01 INFLUENZA VACCINE 07/19/2025 Medical Devices Implanted Type Area Siding Applicator Device Identifier Shelf Expiration Date Model / Serial / Lot Wax Bone Aesculap 2.5gm - [id number] Implanted:Qty : 1 on 10/01/2018 by Akash Aragon MD at [facility] Implant N/A: Spine Cervical AESCULAP A B [place] [id number] / / Screws-Back Procedures Procedure Name Priority Date/Time Associated Diagnosis Comments POCT OCCULT BLOOD STOOL STAT 12/01/2023 9:10 AM EST from Last 3 Months or Most Recently Relevant to Health Maintenance Results * (ABNORMAL) POC Occult Blood Stool (12/01/2023 9:10 AM EST) Fecal Occult Blood Positive(A) Lot Number [id number] Expiration Date 07/2026 DEVELOPER LOT NUMBER [id number] DEVELOPER EXPIRATION DATE 11/2026 Positive Control Positive Negative Control Negative Stool Steven Pacheco MD POINT OF CARE TEST ORDERA BLES Final Result from Last 3 Months or Most Recently Relevant to Health Maintenance Insurance [employer] [facility] Advance Directives * CPR (Attempt to Resuscitate) (Latest Code Status on File) Date Activated Date Inactivated Comments 12/01/2023 12:41 PM 12/03/2023 3:23 PM Question Answer Comments Code Status (Patient has no pulse and is not breathing): CPR (Attempt to Resuscitate) Medical Interventions (Patie nt has pulse or is breathing): Full Support Level Of Support Discussed With: Patient * CPR (Attempt to Resuscitate) Date Activated Date Inactivated Comments 11/08/2018 10:28 AM 11/11/2018 6:12 PM Question Answer Comments Code Status (Patient has no pulse and is not breathing): CPR (Attempt to Resuscitate) Medical Interventions (Patie nt has pulse or is breathing): Full * CPR (Attempt to Resuscitate) Date Activated Date Inactivated Comments 10/01/2018 11:57 AM 10/02/2018 12:35 PM Question Answer Comments Code Status (Patient has no pulse and is not breathing): CPR (Attempt to Resuscitate) Medical Interventions (Patie nt has pulse or is breathing): Full Care Teams Social Insurance Specialist Relationship Specialty Start Date End Date Isaac Hercules MD [address] [place] [address] [address] [facility] [address] [place] [id number] PCP - General Family Medicine 08/03/18
--- NOTE | 2025-05-16 15:05 | CT_ITS ---
FINAL REPORT TECHNIQUE: Thin section axial images were obtained through the lungs using a low-dose technique per lung cancer screening protocol. Reconstruction images were obtained using the axial data. This study was performed with techniques to keep radiation doses as low as reasonably achievable, (ALARA). Individualized dose reduction techniques using automated exposure control or adjustment of mA and/or kV according to the patient's size were employed. CLINICAL HISTORY: SCREENING, current smoker, 1ppd for 45years COMPARISON: 11/20/2023 FINDINGS: CTDLvol: 2.90 DLP: 113.85 Current smoker 45 pack year history Lungs: There is a new 3 mm left upper lobe nodule seen on series 4 image 11. There is evidence of prior granulomatous disease. The previously seen patchy groundglass opacities and airspace opacities have resolved. Lymph nodes: No thoracic lymphadenopathy. Mediastinum: Heart size is normal. There are prominent coronary artery calcifications. Pleura/pericardium: No pleural or pericardial effusion. Abdomen: There is fatty infiltration of the liver. No acute abnormality in the upper abdomen. IMPRESSION: Resolved right lung pneumonia. New 3 mm left upper lobe nodule. Prominent coronary artery calcifications. Lung RADS: 2S Modifier S: Coronary artery calcifications. Recommendation: 12-month follow-up low-dose chest CT. Reviewed, Interpreted and Dictated by Ashley Reid MD Transcribed by Pallavi Laughlin Authenticated and [facility]
== END 2025-05-16 23:59 | disposition home or self-care (01) ==
LOC: RAD 15:00
PROVIDERS: PCP Family Medicine; Visit Provider Family Medicine
DX: I25.10 Atherosclerotic heart disease of native coronary artery without angina pectoris (principal); R91.1 Solitary pulmonary nodule; Z13.9 Encounter for screening, unspecified; Z87.891 Personal history of nicotine dependence
CPT/HCPCS: 71271

== ENCOUNTER 2025-10-03 14:00 | Outpatient (RCR) | payer BC, MEDICARE, SELFPAY | END 2025-10-03 23:59 | disposition home or self-care (01) | LOC: PT 14:00 | PROVIDERS: PCP Family Medicine; Visit Provider Student in an Organized Health Care Education/Training Program | DX: N17.9 Acute kidney failure, unspecified (principal); F10.931 Alcohol use, unspecified with withdrawal delirium; J18.9 Pneumonia, unspecified organism; M47.12 Other spondylosis with myelopathy, cervical region; G89.29 Other chronic pain | CPT/HCPCS: 97110; 97163 ==